=== PATIENT | female | born 1990 | race African-American/Black ===

== ENCOUNTER 2016-10-02 12:44 | Emergency (ER) | payer BC ==
[~2016-10-02] VITALS: Ht 167.6 cm; Wt 103.1 kg
[~2016-10-02 12:44] MED LIST: BCPILLS PO; BISA-16 PO; ONDA4TAB10 SL; ONDA4TAB65 PO; PANT40TA PO
[2016-10-02 12:46] VITALS: TEMP 37; Ht 167.6 cm; Wt 103.1 kg
[2016-10-02] MEDS ORDERED: ACETAMINOPHEN 500 MG TAB PO STA (13:08)
[2016-10-02] MEDS ORDERED: ONDANSETRON INJ 2 MG/ML 2 ML VIAL IV STA ×2 (13:08→15:29)
[2016-10-02] MEDS ORDERED: SODIUM CHLORIDE 0.9% 1000ML 1,000 ML IV STA (13:08)
[2016-10-02] MEDS ORDERED: KETOROLAC TROMETHAMINE 30 MG/ML VIAL IV STA (13:08)
[2016-10-02] MEDS ORDERED: HYDROmorphone INJ 1 MG/ML SYR IV STA (13:08)
--- NOTE | 2016-10-02 13:16 | EMERGENCY ROOM VISIT NOTE ---
History Report prepared by Natalia: Bravo Bourne Under the Supervision of: Dr. Radha Bowen M.D. First contact with patient: 13:01 Chief Complaint: ABDOMINAL PAIN Stated Complaint: POS OVARIAN CYST, SEVERE PAIN IN LRQ/DOWN R LEG History of Present Illness The patient is a 25 year old female who presents to the Emergency Room with complaints of worsening right lower quadrant abdominal pain that started a few weeks ago. She thinks she has an ovarian cyst. The patient states that she is on control, so her period comes the same time every month. The week before her last period, she had brown vaginal discharge and brown dried-out blood clots. The abnormal discharge ended when her period came. However, after her period ended, she started having brown discharge again. During this whole period, she was having a dull pain around the lower right quadrant of her abdomen. The patient's pain then started to worsen, with severe pain that also started going down her right leg. Prior to arrival, the patient started to be unable to put pressure on her right leg, so she decided to come here. The patient still has her appendix. She denies any fevers. The patient says she has chronic nausea due to gallbladder issues. She denies any chance of . The patient called her senior category manager in [place], but the patient is a student here so she could not go see her physician. The patient made an appointment with a senior category manager here for October 08, but she could not wait that long to be seen. Source of History: patient Onset: A few weeks ago Position: abdomen (RLQ) Symptom Intensity: severe Timing: worsening Associated Symptoms: No fevers Note: Associated symptoms: Abnormal brown vaginal discharge and brown dried-out clots , severe pain down right leg, unable to put pressure on right leg. Review of Systems See HPI for pertinent positives & negatives. A total of 10 systems reviewed and were otherwise negative. Past Medical & Surgical Medical Problems: (1) Asthma (2) Chronic back pain (3) Skin problems (4) Stomach problems Family History Cancer Diabetes mellitus Hypertension Social History Smoking Status: Never Smoker Alcohol Use: occasionally Drug Use: marijuana Marital Status: single Housing Status: lives with roommate Occupation Status: [employer] student Current/Historical Medications Scheduled Control Pills ( Control Pills), 1 TAB PO DAILY Ondasetron Odt (Zofran Odt), 4 MG SL Q6H Ondasetron Odt (Zofran Odt), 4 MG SL Q6H Allergies Coded Allergies: No Known Allergies (Unverified , 10/02/16) Physical Exam Vital Signs Date Time Temp Pulse Resp B/P Pulse Ox O2 Delivery O2 Flow Rate FiO2 10/02/16 15:45 67 16 114/58 100 Room Air 10/02/16 12:46 37.0 85 20 137/77 98 Room Air Physical Exam CONSTITUTIONAL: Mild distress. HEENT: No icterus, moist mucous membranes NECK: No meningismus, trachea is midline. CARDIOVASCULAR: Regular rate, normal perfusion RESPIRATORY: Unlabored breathing. Clear to auscultation. GASTROINTESTINAL: Moderate right lower quadrant tenderness. GENITOURINARY: No flank tenderness MUSCULOSKELETAL: Full range of motion NEUROLOGIC: No acute gross focal deficits. PSYCHIATRIC: Normal affect SKIN: Normal for ethnicity. Medical Decision & Procedures ER Provider Diagnostic Interpretation: CT results as stated below per my review and radiologist interpretation. CT ABD/PELVIS IV AND ORAL CONT CLINICAL HISTORY: Severe right lower quadrant abdominal pain COMPARISON STUDY: 06-22 TECHNIQUE: Following the IV administration of 92 mL of Optiray-320, CT scan of the abdomen and pelvis was performed from the lung bases to the proximal femurs. Images are reviewed in the axial, sagittal, and coronal planes. IV contrast was administered without complication. CT DOSE: 1142.06 mGy.cm FINDINGS: Lower chest: The heart is normal in size and configuration, without pericardial effusion. The lung bases and pleural spaces are clear. Liver: There is mild hepatic steatosis. No focal masses are visualized. Gallbladder: Unremarkable. Spleen: Normal in size and attenuation. Pancreas: Unremarkable. Adrenal glands: Unremarkable. Kidneys: There is symmetric renal cortical enhancement. The kidneys are normal in size without hydronephrosis. Bowel: There are no transition zones indicate bowel obstruction. There is no evidence of acute appendicitis. There is no evidence of acute diverticulitis. Peritoneum: There is no intraperitoneal free air or abdominal ascites. Vasculature: The abdominal aorta is normal in course and caliber. Adenopathy: None. Pelvic viscera: The bladder, and pelvic viscera are unremarkable. Skeletal structures: No destructive osseous lesions are seen. IMPRESSION: 1. No acute intra-abdominal or pelvic findings 2. No evidence of bowel obstruction. No evidence of free air 3. No evidence of pathologic free fluid. No pathologic adnexal masses 4. No evidence of acute appendicitis Electronically signed by: Fredy Mejia M.D. 10/02/2016 4:45 PM Dictated Date/Time: 10/02/2016 4:40 PM Laboratory Results 10/02/16 13:02 Red Blood Count 5.43, Mean Corpuscular Volume 62.6, Mean Corpuscular Hemoglobin 20.6, Mean Corpuscular Hemoglobin Concent 32.9, Mean Platelet Volume 9.9, Neutrophils (%) (Auto) 49.7, Lymphocytes (%) (Auto) 42.6, Monocytes (%) (Auto) 6.2, Eosinophils (%) (Auto) 1.0, Basophils (%) (Auto) 0.5, Neutrophils # (Auto) 2.89, Lymphocytes # (Auto) 2.48, Monocytes # (Auto) 0.36, Eosinophils # (Auto) 0.06, Basophils # (Auto) 0.03 10/02/16 13:02 Test 10/02/16 13:02 10/02/16 15:45 White Blood Count 5.82 K/uL (4.8-10.8) Red Blood Count 5.43 M/uL (4.2-5.4) Hemoglobin 11.2 g/dL (12.0-16.0) Hematocrit 34.0 % (37-47) Mean Corpuscular Volume 62.6 fL (80-100) Mean Corpuscular Hemoglobin 20.6 pg (25-34) Mean Corpuscular Hemoglobin Concent 32.9 g/dl (32-36) Platelet Count 440 K/uL (130-400) Mean Platelet Volume 9.9 fL (7.4-10.4) Neutrophils (%) (Auto) 49.7 % Lymphocytes (%) (Auto) 42.6 % Monocytes (%) (Auto) 6.2 % Eosinophils (%) (Auto) 1.0 % Basophils (%) (Auto) 0.5 % Neutrophils # (Auto) 2.89 K/uL (1.4-6.5) Lymphocytes # (Auto) 2.48 K/uL (1.2-3.4) Monocytes # (Auto) 0.36 K/uL (0.11-0.59) Eosinophils # (Auto) 0.06 K/uL (0-0.5) Basophils # (Auto) 0.03 K/uL (0-0.2) RDW Standard Deviation 34.3 fL (36.4-46.3) RDW Coefficient of Variation 15.2 % (11.5-14.5) Immature Granulocyte % (Auto) 0.0 % Immature Granulocyte # (Auto) 0.00 K/uL (0.00-0.02) Microcytosis PRESENT Ovalocytes 1+ Anion Gap 12.0 mmol/L (3-11) Est Creatinine Clear Calc Drug Dose 125.2 ml/min Estimated GFR () 112.7 Estimated GFR (Non- 97.3 BUN/Creatinine Ratio 10.7 (10-20) Calcium Level 9.5 mg/dl (8.5-10.1) Total Bilirubin 0.2 mg/dl (0.2-1) Direct Bilirubin < 0.1 mg/dl (0-0.2) Aspartate Amino Transf (AST/SGOT) 50 U/L (15-37) Alanine Aminotransferase (ALT/SGPT) 98 U/L (12-78) Alkaline Phosphatase 56 U/L (45-117) Total Protein 7.8 gm/dl (6.4-8.2) Albumin 3.3 gm/dl (3.4-5.0) Lipase 67 U/L (73-393) Human Chorionic Gonadotropin, Qual NEG (NEG) Urine Color DK YELLOW Urine Appearance CLEAR (CLEAR) Urine pH 6.5 (4.5-7.5) Urine Specific [place] 1.033 (1.000-1.030) Urine Protein TRACE (NEG) Urine Glucose (UA) NEG (NEG) Urine Ketones TRACE (NEG) Urine Occult Blood TRACE (NEG) Urine Nitrite NEG (NEG) Urine Bilirubin NEG (NEG) Urine Urobilinogen NEG (NEG) Urine Leukocyte Esterase NEG (NEG) Urine WBC (Auto) 1-5 /hpf (0-5) Urine RBC (Auto) 5-10 /hpf (0-4) Urine Hyaline Casts (Auto) 10-30 /lpf (0-5) Urine Epithelial Cells (Auto) >30 /lpf (0-5) Urine Bacteria (Auto) 1+ (NEG) Labs reviewed by ED physician. Medications Administered Medications (Trade) Dose Ordered Sig/Marisa Route Start Time Stop Time Status Last Admin Dose Admin Acetaminophen 1000 mg 1,000 mg NOW STAT PO 10/02/16 13:08 10/02/16 13:10 DC 10/02/16 13:22 1,000 MG Sodium Chloride (Nss 1000ml) 1,000 ml @ 0 mls/hr Q0M STAT IV 10/02/16 13:08 10/02/16 13:10 DC 10/02/16 13:08 0 MLS/HR Ketorolac Tromethamine (Toradol Inj) 30 mg NOW STAT IV 10/02/16 13:08 10/02/16 13:10 DC 10/02/16 13:22 30 MG Ondansetron HCl (Zofran Inj) 4 mg NOW STAT IV 10/02/16 13:08 10/02/16 13:10 DC 10/02/16 13:21 4 MG Hydromorphone HCl (Dilaudid Inj) 1 mg PRN STAT IV 10/02/16 13:08 10/02/16 13:10 DC 10/02/16 13:21 1 MG Metoclopramide HCl (Reglan Inj) 10 mg Q6H IV 10/02/16 14:15 11/01/16 14:14 10/02/16 14:20 10 MG Ondansetron HCl (Zofran Inj) 4 mg NOW STAT IV 10/02/16 15:29 10/02/16 15:31 DC 10/02/16 15:44 4 MG Promethazine HCl (Phenergan Inj) 25 mg STK-MED ONCE .ROUTE 10/02/16 16:10 10/02/16 16:11 DC 10/02/16 16:15 25 MG ED Course 1305: Past medical records reviewed. The patient was evaluated in room C12B. A complete history and physical examination was performed. 1308: Ordered Dilaudid Inj 1 mg IV PRN, Zofran Inj 4 mg IV, Toradol Inj 30 mg IV , NSS 1000 ml @ 0 mls/hr Wide Open IV, Tylenol Tab 1000 mg PO. 1738: I reevaluated the patient and she is resting comfortably. The patient verbally expressed understanding and agreement of the treatment plan. The patient will be discharged. Medical Decision Differential diagnoses include: appendicitis, ovarian cyst, constipation. 25-year-old presents to the emergency department for evaluation of diffuse abdominal pain and nausea. CT and labs were unremarkable for acute disease. Abdomen benign prior to discharge. Patient notes that she has an abnormal HIDA scan and is scheduled to see general surgery for consideration of cholecystectomy. We discussed the importance of Zofran as needed for nausea to return for severe symptoms or vomiting. She was to follow-up with her surgeon and to return for worsening symptoms. Impression Primary Impression: Abdominal pain Scribe Attestation The scribe's documentation has been prepared under my direction and personally reviewed by me in its entirety. I confirm that the note above accurately reflects all work, treatment, procedures, and medical decision making performed by me. Departure Information Dispostion Home / Self-Care Prescriptions Ondasetron Odt (ZOFRAN ODT) 4 Mg Tab 4 MG SL Q6H for Nausea, #20 TAB Prov: Radha Bowen MD 10/02/16 Referrals No Doctor, Assigned (PCP) Forms HOME CARE DOCUMENTATION FORM, IMPORTANT VISIT INFORMATION Patient Instructions ED Abd Pain Unkn Cause Fem, My [facility]
[2016-10-02 13:19] LABS: BASO % 0.5 %; BASO ABS # 0.03 K/uL (0-0.2); LYMPH % 42.6 %; LYMPH ABS # 2.48 K/uL (1.2-3.4); MEAN CELL VOLUME 62.6 fL (80-100); MEAN CORPUSCULAR HEMOGLOBIN 20.6 pg (25-34); MEAN CORPUSCULAR HGB CONC 32.9 g/dl (32-36); MEAN PLATELET VOLUME 9.9 fL (7.4-10.4); MONO % 6.2 %; NEUT % 49.7 %; PLATELET COUNT 440 K/uL (130-400); RED BLOOD COUNT 5.43 M/uL (4.2-5.4); WHITE BLOOD COUNT 5.82 K/uL (4.8-10.8)
[2016-10-02 13:27] LABS: BLOOD UREA NITROGEN 9 mg/dl (7-18); BUN/CREATININE RATIO 10.7 (10-20); CALCIUM 9.5 mg/dl (8.5-10.1); CARBON DIOXIDE 22 mmol/L (21-32); CHLORIDE 107 mmol/L (98-107); CREATININE 0.84 mg/dl (0.60-1.20); GLUCOSE 87 mg/dl (70-99); POTASSIUM 3.6 mmol/L (3.5-5.1); SODIUM 141 mmol/L (136-145)
[2016-10-02 13:30] LABS: ALKALINE PHOSPHATASE 56 U/L (45-117); ALT/SGPT 98 U/L (12-78); AST/SGOT 50 U/L (15-37)
[2016-10-02 13:54] LABS: COMPLETE YES; MICROCYTOSIS PRESENT; OVALOCYTES 1+
[2016-10-02 13:56] LABS: PREG INTERNAL NEGATIVE QC NEG CLEAR BACKGROUND; PREG INTERNAL POSITIVE QC POS CONTROL LINE
[2016-10-02] MEDS ORDERED: METOCLOPRAMIDE HCL INJ 5 MG/ML 2 ML VIAL IV SCH (14:15)
[2016-10-02] MEDS ORDERED: OPTIRAY 320 IV PRN (15:15)
[2016-10-02] MEDS ORDERED: PROMETHAZINE HCL INJ 25 MG in SODIUM CHLORIDE 0.9% 50ML 50 ML IV STA (15:55)
[2016-10-02] MEDS ORDERED: NURSING VERBAL MED ORDER ONE (16:00)
[2016-10-02 16:05] LABS: URINE APPEARANCE CLEAR (CLEAR); URINE COLOR DK YELLOW; URINE EPITHELIAL CELL AUTO >30 /lpf (0-5); URINE NITRITE NEG (NEG); URINE PH 6.5 (4.5-7.5); URINE SPECIFIC GRAVITY 1.033 (1.000-1.030); UROBILINOGEN NEG (NEG); ZZUR CULT IF INDIC CLEAN CATCH YES
[2016-10-02] MEDS ORDERED: PROMETHAZINE HCL INJ 25 MG/ML 1 ML VIAL ONE (16:10)
[2016-10-02] MEDS ORDERED: PROMETHAZINE HCL INJ 25 MG in SODIUM CHLORIDE 0.9% 50ML 50 ML IV SCH (16:15)
[2016-10-02 16:16] LABS: MANUAL MICROSCOPIC REQUIRED? NO
[2016-10-02 16:17] LABS: REVIEW REQ? YES
[2016-10-02 16:19] LABS: URINE BILIRUBIN NEG (NEG)
--- NOTE | 2016-10-02 16:46 | DIAGNOSTIC IMAGING REPORT ---
CT ABD/PELVIS IV AND ORAL CONT CLINICAL HISTORY: Severe right lower quadrant abdominal pain COMPARISON STUDY: 06-22 TECHNIQUE: Following the IV administration of 92 mL of Optiray-320, CT scan of the abdomen and pelvis was performed from the lung bases to the proximal femurs. Images are reviewed in the axial, sagittal, and coronal planes. IV contrast was administered without complication. CT DOSE: 1142.06 mGy.cm FINDINGS: Lower chest: The heart is normal in size and configuration, without pericardial effusion. The lung bases and pleural spaces are clear. Liver: There is mild hepatic steatosis. No focal masses are visualized. Gallbladder: Unremarkable. Spleen: Normal in size and attenuation. Pancreas: Unremarkable. Adrenal glands: Unremarkable. Kidneys: There is symmetric renal cortical enhancement. The kidneys are normal in size without hydronephrosis. Bowel: There are no transition zones indicate bowel obstruction. There is no evidence of acute appendicitis. There is no evidence of acute diverticulitis. Peritoneum: There is no intraperitoneal free air or abdominal ascites. Vasculature: The abdominal aorta is normal in course and caliber. Adenopathy: None. Pelvic viscera: The bladder, and pelvic viscera are unremarkable. Skeletal structures: No destructive osseous lesions are seen. IMPRESSION: 1. No acute intra-abdominal or pelvic findings 2. No evidence of bowel obstruction. No evidence of free air 3. No evidence of pathologic free fluid. No pathologic adnexal masses 4. No evidence of acute appendicitis Electronically signed by: Fredy Mejia M.D. 10/02/2016 4:45 PM Dictated Date/Time: 10/02/2016 4:40 PM
[2016-10-02] MEDS ORDERED: ONDA4TAB10 SL (17:34)
[2016-10-02 18:10] VITALS: BP 138/78; PULSE 77; O2SAT 96
[2016-10-10] MEDS ORDERED: MULT-506 PO (12:45)
[2016-10-10] MEDS ORDERED: ONDA4TAB65 PO (12:45)
== END 2016-10-02 18:13 | disposition home or self-care (01) ==
LOC: C.EDB 12:46 → C.EDC 18:13
DX: R10.31 Right lower quadrant pain (principal); J45.909 Unspecified asthma, uncomplicated; M54.9 Dorsalgia, unspecified; G89.29 Other chronic pain

== ENCOUNTER 2016-10-23 08:56 | Day surgery (SDC) | payer BC ==
[2016-10-10 12:53] VITALS: BMI 36.0
[~2016-10-23] VITALS: Ht 167.6 cm; Wt 103.0 kg
[2016-10-23] VITALS (7 sets, daily range): BP systolic 114–143; BP diastolic 60–82; PULSE 59–94; TEMP 36.4–36.7; O2SAT 95–98; Ht 167.6 cm; Wt 103.0 kg
[~2016-10-23 08:56] MED LIST changes: -BISA-16 PO; +DEXAMETHASONE SOD INJ 4 MG/ML VIAL ONE; +FENTANYL CITRATE INJ 50 MCG/1 ML 2 ML VIAL ONE; +GLYCOPYRROLATE INJ 0.2 MG/ML VIAL ONE; +LACTATED RINGER'S 1000ML 1,000 ML IV SCH; +LIDOCAINE HCL 2% 2 ML VIAL (20MG/ML) ONE; +MIDAZOLAM HCL 1 MG/ML 2ML VIAL ONE; +MULT-506 PO; +NEOSTIGMINE METHYLSULFATE 5 MG/5 ML SYR ONE; -ONDA4TAB10 SL; +ONDANSETRON HOME PACK 4MG OD TAB PO SCH; +ONDANSETRON INJ 2 MG/ML 2 ML VIAL ONE; -PANT40TA PO; +PROPOFOL IV EMULSION 10 MG/ML 20 ML VIAL IV ONE; +ROCURONIUM BROMIDE 10 MG/ML 5 ML VIAL ONE
--- NOTE | 2016-10-23 09:17 | Discharge Instructions ---
Discharge Instructions Visit Reason for Visit: Biliary Dyskinesia Discharge Discharge Diagnosis / Problem: laparoscopic cholecystectomy Discharge Goals Goal(s): Decrease discomfort Activity Recommendations Activity Limitations: as noted below Lifting Limitations: no more than 10 pounds Shower/Bathe: tomorrow Driving or Machine Use: resume 3 days after discharge Anesthesia . Post Anesthesia Instructions: If you have had General Anesthesia or IV Sedation: * Do not drive today. * Resume driving when surgeon permits. * Do not make important decisions or sign legal documents today. * Call surgeon for: 1. Temperature elevations greater than 101 degrees F. 2. Uncontrollable pain. 3. Excessive bleeding. 4. Persistent nausea and vomiting. 5. Medication intolerance (nausea, vomiting or rash). * For nausea and vomiting use only clear liquids such as: tea, soda, bouillon until nausea subsides, then gradually increase diet as tolerated. * If you have any concerns or questions, call your surgeon's office. If physician is unavailable and it is an emergency, call 911 or go to the nearest emergency room. . Instructions / Follow-Up Instructions / Follow-Up Dr. Centeno in 1 week, call [phone] if you do not already have an appt or with any questions Diet Recommendations Recommended Home Diet: no limitations Pending Studies Studies pending at discharge: no Work Instructions Return To Work: after follow-up Medical Emergencies . Who to Call and When: Medical Emergencies: If at any time you feel your situation is an emergency, please call 911 immediately. . Non-Emergent Contact Non-Emergency issues call your: Surgeon Call Non-Emergent contact if: you have a fever, temperature is above 101.5, your pain is not controlled, wound has increased redness . . "Provider Documentation" section prepared by Jose Enrique Sweeney.
--- NOTE | 2016-10-23 09:19 | History & Physical Bridge Note ---
H&P Re-Evaluation Bridge Note: I have examined the patient, reviewed the History & Physical and in the interval since the performance of the History & Physical I have noted the following changes of clinical significance: No changes noted no one at bedside
[2016-10-23] MEDS ORDERED: OXYC-57 PO (09:23)
[2016-10-23] MEDS ORDERED: LIDOCAINE/EPINEPHRINE 1% 20 ML VIAL ONE (09:33)
[2016-10-23 09:49] LABS: PREG INTERNAL NEGATIVE QC NEG CLEAR BACKGROUND; PREG INTERNAL POSITIVE QC POS CONTROL LINE
[2016-10-23] MEDS ORDERED: MIDAZOLAM HCL 1 MG/ML 2ML VIAL ONE (09:57)
[2016-10-23] MEDS ORDERED: FENTANYL CITRATE INJ 50 MCG/1 ML 2 ML VIAL ONE ×2 (10:23→11:10)
[2016-10-23] MEDS ORDERED: HYDROmorphone INJ 1 MG/ML SYR IV PRN (10:30)
[2016-10-23] MEDS ORDERED: EpHEDrine SULFATE INJ 50 MG/ML AMP IV PRN (10:30)
[2016-10-23] MEDS ORDERED: MEPERIDINE HCL 25 MG/ML CARP IV PRN (10:30)
[2016-10-23] MEDS ORDERED: ONDANSETRON INJ 2 MG/ML 2 ML VIAL IV PRN ×2 (10:30→11:15)
[2016-10-23] MEDS ORDERED: ATROPINE SULFATE 0.1 MG/ML 5ML SYR IV PRN (10:30)
[2016-10-23] MEDS ORDERED: LABETALOL HCL IV 5 MG/ML 20ML IV PRN (10:30)
[2016-10-23] MEDS ORDERED: FENTANYL CITRATE INJ 50 MCG/1 ML 2 ML VIAL IV PRN (10:30)
--- NOTE | 2016-10-23 10:53 | DIAGNOSTIC IMAGING REPORT ---
INTRAOPERATIVE CHOLANGIOGRAM CLINICAL HISTORY: Cholangiogram. COMPARISON STUDY: MRCP July 28, [address] of the abdomen and pelvis October 02, 2016. FLUOROSCOPY TIME: 3 seconds. FINDINGS: There is no biliary ductal dilatation. No filling defect is identified to suggest choledocholithiasis. There is contrast within the duodenum. There is apparent irregularity with multifocal narrowing within the intrahepatic bile ducts. This could be artifactual. IMPRESSION: 1. No evidence of choledocholithiasis. 2. Apparent multifocal narrowing within the intrahepatic bile ducts with possible smooth narrowing of the common bile duct. This could be artifactual although primary sclerosing cholangitis could have this imaging appearance. Electronically signed by: Semaj Clark M.D. 10/23/2016 10:52 AM Dictated Date/Time: 10/23/2016 10:45 AM
[2016-10-23] MEDS ORDERED: CONRAY 60% 50 ML VIAL INSTIL ONE (10:54)
[2016-10-23] MEDS ORDERED: LACTATED RINGER'S 1000ML 1,000 ML IV SCH (11:04)
--- NOTE | 2016-10-23 11:11 | [facility] Post Operative Brief Note ---
Immediate Operative Summary Operative Date Oct 23, 2016. Pre-Operative Diagnosis Biliary Dyskenisia Post-Operative Diagnosis Same Procedure(s) Performed Laparoscopic Cholecystectomy with Cholangiogram Trucut biopsy Right right Lobe Liver Surgeon Dr Centeno Duplication Specialist Surgeon(s) Jose Enrique Sweeney PA-C Estimated Blood Loss 5ml Findings cc Specimens A. Gallbladder B. Liver biopsy
[2016-10-23] MEDS ORDERED: ONDANSETRON INJ 2 MG/ML 2 ML VIAL ONE (11:13)
[2016-10-23] MEDS ORDERED: OXYCODONE/ACETAMINOPHEN 5-325 TAB PO PRN (11:15)
[2016-10-23] MEDS ORDERED: MoRPHine SULFATE 2 MG/ML CARP IV PRN (11:15)
[2016-10-23] MEDS: HYDROmorphone INJ 1 MG/ML SYR ONE (11:35)
[2016-10-23] MEDS ORDERED: METOCLOPRAMIDE HCL INJ 5 MG/ML 2 ML VIAL ONE (11:36)
[2016-10-23] MEDS ORDERED: NURSING VERBAL MED ORDER ONE ×3 (11:40→17:15)
[2016-10-23] MEDS ORDERED: HYDROmorphone INJ 1 MG/ML SYR ONE (11:51)
--- NOTE | 2016-10-23 12:26 | Anesthesiology Progress Note ---
Anesthesia Post Op Note Date & Time Oct 23, 2016 at 12:26 Vital Signs Pain Intensity: 5 Vital Signs Past 12 Hours Date Time Temp Pulse Resp B/P Pulse Ox O2 Delivery O2 Flow Rate FiO2 10/23/16 12:17 36.4 10/23/16 12:15 64 20 97 10/23/16 12:15 65 20 10/23/16 12:13 143/77 10/23/16 12:10 63 17 10/23/16 12:10 64 17 96 10/23/16 12:09 67 19 96 10/23/16 12:09 69 19 10/23/16 12:08 143/71 10/23/16 12:04 64 21 10/23/16 12:04 64 21 96 10/23/16 12:03 135/71 10/23/16 11:59 67 18 96 10/23/16 11:59 68 18 10/23/16 11:58 135/82 10/23/16 11:54 70 22 97 10/23/16 11:54 70 22 10/23/16 11:53 60 22 10/23/16 11:53 60 22 133/77 98 10/23/16 11:48 60 19 10/23/16 11:48 60 19 133/60 98 10/23/16 11:45 141/71 10/23/16 11:43 57 19 10/23/16 11:43 57 19 98 10/23/16 11:38 61 17 138/67 97 10/23/16 11:38 61 17 10/23/16 11:33 83 17 10/23/16 11:33 87 17 121/87 97 10/23/16 11:28 56 15 140/71 98 10/23/16 11:28 56 15 10/23/16 11:23 91 24 10/23/16 11:23 91 24 149/80 98 10/23/16 11:18 84 19 10/23/16 11:18 84 19 151/90 98 10/23/16 11:13 67 15 131/73 100 10/23/16 11:13 67 15 10/23/16 11:08 83 26 10/23/16 11:08 36.8 74 20 144/83 100 Mask 10 10/23/16 11:08 83 26 128/68 99 10/23/16 09:09 36.7 71 18 136/65 98 Room Air Notes Mental Status: alert / awake / arousable, participated in evaluation Pt Amnestic to Procedure: Yes Nausea / Vomiting: adequately controlled Pain: adequately controlled Airway Patency, RR, SpO2: stable & adequate BP & HR: stable & adequate Hydration State: stable & adequate Anesthetic Complications: no major complications apparent
[2016-10-23] MEDS ORDERED: PROMETHAZINE HCL INJ 25 MG in SODIUM CHLORIDE 0.9% 50ML 50 ML IV SCH (14:45)
--- NOTE | 2016-10-23 22:43 | OPERATIVE REPORT ---
DATE OF OPERATION: 10/23/2016 SURGEON: Dr. Centeno. VENDING ROUTE DRIVER: Jose Enrique Sweeney PA-C. PREOPERATIVE DIAGNOSES: Biliary dyskinesia, chronic cholecystitis, elevated liver function tests. POSTOPERATIVE DIAGNOSES: Same. PROCEDURE: Laparoscopic cholecystectomy, intraoperative cholangiogram, Martin-Cut biopsy right lobe of the liver. SUMMARY: The patient was brought into the operating room under general anesthetic. The abdomen was prepped with Betadine solution and properly draped. Made a small transverse incision above the umbilicus, sufficient enough to place a Veress needle, followed by CO2, followed by a 5 mm trocar. Point of entry inspected, no injury identified. Under direct visualization, we placed a 5 mm epigastric, two 5 mm subcostal ports, preemptive analgesia 1% Xylocaine. The gallbladder was visualized, did not have any adhesions to it. As we elevated it up, there were some fine adhesions noticed on the neck of the gallbladder, we dissected it out. The patient had a large lymph node of [place], actually it was coming inferolateral to the cystic duct and cystic artery that we were unable to identify. We freed this up. The first structure we found inferiorly was cystic artery which we doubly clipped and divided. Cystic duct was beyond it. We were able then to get around it with a right angle clamp, making sure that we were next to the takeoff of it. At this point, we clipped it proximally. A small opening in the cystic duct was made. A #4 ureteral catheter transversing abdominal wall and a 14 Angiocath was positioned in the cystic duct. Serial x-rays were taken. The patient had a very long cystic duct and actually it was crossing over to common bile duct, coming out medially, but free flow into the duodenum. There was no common bile duct distention and we could visualize the bifurcation proximally without any significant defect. At this point, the cholangiocath was removed. I checked up on the cystic duct, they were able to get probably another half inch or so, we were able then to clip it doubly and divide it. Cystic artery which we had doubly clipped and divided initially but it actually was coursing into the gallbladder inferiorly. Using electrocautery at 25, we left the posterior peritoneum of the gallbladder and the liver intact and freed up the gallbladder intact from the liver, placed on an Endopouch and took it out intact through the epigastric port. At this point, the subhepatic area was checked for hemostasis and appeared quite satisfactory. We then placed a Martin-Cut needle by making a small stab wound between the two 5 mm trocars and positioned it. Once we had the liver edge elevated we took first few passes , did not have a good biopsy, the third one had a good Martin-Cut biopsy of the right lobe and was sent for permanent. The area where we entered the liver capsule was cauterized and hemostasis was satisfactory. We at this point suctioned out inferior and above the liver, placed a 5 mm trocar through the right flank port site to visualize the umbilical area and there was no adhesion of the anterior abdominal wall. Individual trocars were taken out under direct visualization, there was no bleeding identified. 4-0 Monocryl for subcuticular closure, Steri-Strips applied. The procedure was tolerated well by the patient. Estimated blood loss approximately 5 mL. The patient was taken to recovery room in good condition. I attest to the content of the Intraoperative Record and any orders documented therein. Any exceptions are noted below. [facility]
== END 2016-10-23 17:33 | disposition home or self-care (01) ==
LOC: C.ACU 08:56
PROVIDERS: ATTEND Surgery
DX: K80.11 Calculus of gallbladder with chronic cholecystitis with obstruction (principal); K75.9 Inflammatory liver disease, unspecified; D64.9 Anemia, unspecified; M19.90 Unspecified osteoarthritis, unspecified site; J45.909 Unspecified asthma, uncomplicated; H40.9 Unspecified glaucoma; Z98.890 Other specified postprocedural states